=== PATIENT | male | born 2000 | race Caucasian/White ===

== ENCOUNTER 2019-07-13 12:27 | Emergency (ER) | payer BC, SELFPAY ==
[2019-07-13] MEDS: ONDANSETRON INJ 4 MG/2 ML VIAL IV PUSH (12:46)
--- NOTE | 2019-07-13 12:49 | ED.NAVMDI ---
HPI - Nausea/Vomiting/Diarrhea General Chief complaint: Nausea/Vomiting/Diarrhea Stated complaint: Fever Vomiting Time Seen by Provider: 07/13/19 12:49 Source: patient Mode of arrival: ambulatory Limitations: no limitations History of Present Illness HPI Narrative: Previously well 19-year-old man comes in today complaining of vomiting, weakness, fever, headache and body aches. He has also been having sore throat and cough. These symptoms started 2 days ago. Today he began having vomiting. He has had no diarrhea, rash, dysuria, or syncope. MD elicited complaint: nausea and vomiting Onset (ago): day(s) (2) Description of vomiting: food contents Associated nausea: Yes Associated abdominal pain: Yes Location of pain: diffuse Radiation: does not radiate Pain consistency: constant Severity: mild Quality: aching Relieving factors: none Associated symptoms: myalgias, cough, fever/chills, malaise, nausea/vomiting and weakness Related Data Home Medications Medication Instructions Recorded Confirmed albuterol sulfate 1 inh INHALATION 07/13/19 Allergies Allergy/AdvReac Type Severity Reaction Status Date / Time No Known Allergies Allergy Verified 01/07/14 13:08 Review of Systems Constitutional: Constitutional: Reports as per HPI, Reports chills, Reports fatigue, Reports fever(s) and Reports weakness Eyes: Eyes: Denies change in vision and Denies photophobia ENT: Denies dysphagia, Reports nasal congestion and Reports sore throat Cardiovascular: Cardiovascular: Denies chest pain and Denies radiating jaw, neck or arm pain Respiratory: Respiratory: Reports cough, Denies dyspnea and Denies wheezing Gastrointestinal: Gastrointestinal: Reports as per HPI, Reports abdominal pain, Denies diarrhea, Reports nausea and Reports vomiting Genitourinary: Genitourinary: Denies hematuria and Denies dysuria Musculoskeletal: Musculoskeletal: Denies back pain and Denies joint swelling Integumentary/Breasts: Skin/Breast: Denies pruritus, Denies erythema and Denies rash Neurologic: Denies vertigo, Denies syncope and Denies focal weakness Psychiatric: Psychiatric: Denies anxiety and Denies depression Endocrine: Endocrine: Denies polydipsia and Denies polyuria Hematologic/Lymphatic: Hematologic/Lymphatic: Denies easy bleeding and Denies easy bruising Allergic/Immunologic: Allergic/Immunologic: Denies lip swelling and Denies wheezing PMFSH Past Medical History Medical History (Updated 07/13/19 @ 14:53 by Chandan Han MD) Asthma Social History Social History (Updated 07/13/19 @ 14:36 by Chandan Han MD) Smoking status: Never smoker Alcohol intake: never Substance use: never Living arrangements: with family Exam Const: General: alert and ill appearing acutely Orientation/consciousness: patient oriented x3 Other: Moderate acute distress HENMT: Ears: external ears normal, TM's normal bilaterally and EAC's normal Mouth: Yes Normal oral and palatal mucosa present and Yes moist mucous membranes ( And pink) Throat: posterior oropharynx normal Eyes: Cornea: corneas normal Pupils: Equal, round and reactive pupils present EOM: EOMs intact bilaterally Neck: Neck: normal visual inspection, no lymphadenopathy and meningismus present Resp: Effort & Inspection: normal respiratory effort and not labored Auscultation: clear to auscultation bilaterally, no rales, no rhonchi and no wheezes Cardio: Rate: tachycardic Rhythm: regular rhythm Heart sounds: no murmurs GI: GI Palp: Yes Soft to palpation, No Tenderness to palpation present (GI), No Guarding due to palpation present (GI) and No Rigid due to palpation Other: no masses or distension Skin: General skin exam: no jaundice and no pallor Rashes: no rashes Other: mild pallor. Neuro: General: patient oriented x3, moves all extremities, no focal motor deficits and CN's II-XI intact bilaterally Speech: normal speech Extrem: General: normal to inspe
[2019-07-13] MEDS: SODIUM CHLORIDE 0.9% IV 1,000 ML 999 ML IV CONT ×2 (12:50→14:23)
[2019-07-13 12:52] VITALS: BP 119/68; PULSE 116; RESP 20; TEMP 39.5; O2SAT 96
[2019-07-13] MEDS: ACETAMINOPHEN 500 MG TABLET 1000 MG PO (13:13)
[2019-07-13 13:43] LABS: Alanine Aminotransferase 19 U/L (16-63); Alkaline Phosphatase 57 U/L (46-116); Aspartate Amino Transferase 19 U/L (15-37); Bilirubin,Total 0.7 mg/dL (0.00-1.00); Blood Urea Nitrogen 15 mg/dL (7-18); Calcium 8.1 mg/dL (8.5-10.1); Carbon Dioxide 27 mmol/L (21-32); Chloride 102 mmol/L (98-108); Estimated Glomerular Filt Rate > 60; Glucose 122 mg/dL (70-99); Osmolality Calculated 289 mOsm/kg (285-295); Sodium 139 mmol/L (136-145)
[2019-07-13 13:45] VITALS: TEMP 40.1
[2019-07-13] MEDS: IBUPROFEN 600 MG TABLET PO (13:45)
[2019-07-13 13:47] LABS: Lactic Acid 1.4 mmol/L (0.4-2.0)
[2019-07-13 13:50] LABS: Add Urine Microscopic? NO; Appearance Urine Clear (Clear); Bilirubin Urine Negative (Negative); Blood Urine Negative (Negative); Color Urine Yellow (Yellow); Glucose Urine UA Negative (Negative); Ketones Urine Negative (Negative); Leukocyte Esterase Ur Negative (Negative); Nitrate Urine Negative (Negative); Protein Urine Negative (Negative); Urobilinogen Urine 0.2 mg/dL (0.2-1.0); pH Urine 6.5 (5.0-8.0)
[2019-07-13 13:57] LABS: Total Protein 7.2 g/dL (6.4-8.2)
[2019-07-13 14:11] VITALS: BP 106/49; BP 107/55; PULSE 126; PULSE 96
[2019-07-13 14:12] LABS: Influenza Control Valid (Valid)
[2019-07-13 14:12] LABS: Hematocrit 44.7 % (40.0-54.0); Hemoglobin 15.4 g/dL (14.0-18.0); Mean Corpuscular HGB Conc 34.5 g/dL (32.0-36.0); Mean Corpuscular Hemoglobin 29.3 pg (27.0-31.0); Platelet Count Result 112 K/mm3 (150-420); Red Blood Count 5.26 M/mm3 (4.70-6.10); Red Cell Distribution Width 11.7 % (11.6-14.4); White Blood Count 3.9 K/mm3 (4.8-10.8)
[2019-07-13 14:15] LABS: Band Neutrophils Percent 9 % (0-6); Lymphocytes Percent Manual 13 % (18-44); Neutrophils Absolute Manual 3.23 K/mm3 (1.3-6.7); Neutrophils Percent Manual 74 % (46-73); Total Cells Counted 100
[2019-07-13 14:16] LABS: Basophils Percent Manual 0 % (0-1); Eosinophils Percent Manual 0 % (1-6); Monocytes Absolute Manual 0.15 K/mm3 (0.1-0.90); Monocytes Percent Manual 4 % (3-9); Platelet Estimate Adequate (Adequate)
[2019-07-13 14:51] VITALS: PULSE 92; O2SAT 98
[2019-07-13] MEDS: OSELTAMIVIR PHOSPHATE 75 MG CAP PO (15:08)
[2019-07-13 15:12] VITALS: PULSE 90; TEMP 37.9; O2SAT 100
== END 2019-07-13 15:18 | disposition home or self-care (01) ==
PROVIDERS: Emergency Provider Emergency Medicine
DX: E86.0 Dehydration (principal); J11.1 Influenza due to unidentified influenza virus with other respiratory manifestations; N17.9 Acute kidney failure, unspecified
CPT/HCPCS: 36415; 80053; 81003; 83605; 85025; 87040; 87081; 87804; 87880; 96361; 96374; 99283; 99284; A9270; J2405; J7030